=== PATIENT | male | born 1995 | race Caucasian/White ===

== ENCOUNTER 2018-06-20 04:17 | Emergency (ER) | payer SELFPAY ==
[2018-06-20 04:18] VITALS: BP 156/95; PULSE 81; RESP 18; TEMP 37.1; O2SAT 94; BMI 34.0
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
[2018-06-20] MEDS: 0.9% Normal Saline 1,000 ML 999 ML IV (05:01)
[2018-06-20 05:23] LABS: Absolute Lymphocyte Count 1.38 X10^3/ul (0.83-4.51); Absolute Neutrophil Count 5.3 X10^3/uL (2.0-7.7); Basophil# 0.01 X10^3/uL; Basophil% 0.1 % (0-1); Eosinophil# 0.12 X10^3/uL; Eosinophils% 1.6 % (0-5); Hemoglobin 14.5 g/dl (13.0-16.5); Lymphocyte # 1.38 X10^3/ul (4.0); Lymphocyte % 18.4 % (19-41); Mean Corpuscular Hgb 28.6 pg (27.0-32.0); Mean Corpuscular Volume 86.8 fL (80-94); Monocyte# 0.64 X10^3/uL; Monocyte% 8.5 % (0-10); Neutrophil # 5.34 X10^3/uL (2.7-7.7); Neutrophil % 71.3 % (47-70); Platelet Count 161 K/mm3 (150-450); RBC Distribution Width CV 13.1 % (11.6-14.6); RBC Distribution Width SD 41.3 fl (35.1-43.9); Red Blood Count 5.07 M/mm3 (4.6-6.2); White Blood Count 7.5 K/mm3 (4.4-11.0)
[2018-06-20 05:35] LABS: International Normalized Ratio 0.9; Prothrombin Time (Protime)PT. 12.4 SECONDS (11.7-14.9)
[2018-06-20 05:36] LABS: Partial Thromboplast Time 33.9 Seconds (24.1-36.2)
[2018-06-20 05:37] LABS: BUN 16 mg/dL (7-18); Creatinine, Serum 0.94 mg/dL (0.70-1.30); Glucose 109 mg/dL (74-106)
[2018-06-20 05:38] LABS: Anion Gap 11 (5-15); Calcium,Total 8.7 mg/dL (8.5-10.1); Chloride 106 mmol/L (98-107); EST Glomerular Filtration Rate 106 mL/min (>60); Est Glom Filt Rate - Afr Amer 128 mL/min (>60); Estimated Creatinine Clearance 123.27 ml/min; Potassium 3.6 mmol/L (3.5-5.1); Sodium Level 141 mmol/L (136-145)
[2018-06-20 05:53] LABS: POSITIVE COUNT NO; POSITIVE DIFFERENTIAL NO; POSITIVE MORPHOLOGY NO
[2018-06-20 06:18] VITALS: BP 140/75; PULSE 108; RESP 18; O2SAT 99
[2018-06-20 06:31] LABS: Bacteria 0 SEEN /hpf (None Seen); Mucous, Urine 0 SEEN /hpf (<or=2+); Red Blood Cells-Urine 0 SEEN /hpf (0-5); Squamous Epithelial Cells - UA 0 SEEN /hpf (0-5)
[2018-06-20 06:38] LABS: Color, Urine Yellow (Yellow); Glucose, Dipstick Normal (Normal); Ketone-Dipstick Negative (Negative); Leukocyte Esterase-Dipstick Negative /ul (Negative); Nitrite-Dipstick Negative (Negative); Occult Blood-Urine Negative /ul (Negative); Protein-Dipstick Negative (Negative); Specific Gravity, Urine 1.015 (1.002-1.030); Urine Bilirubin Dipstick Negative (Negative); Urine Clarity Clear (Clear); Urine Urobilinogen Normal (Normal); Urine pH 6.5 (5.0 - 8.0)
[2018-06-20 06:47] LABS: White Blood Cells 0-5 SEEN /hpf (0-5)
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
[2018-06-20 07:09] VITALS: BP 138/75; PULSE 84; RESP 17; O2SAT 98
== END 2018-06-20 07:10 | disposition home or self-care (01) ==
PROVIDERS: Emergency Provider Emergency Medicine
DX: S13.4XXA Sprain of ligaments of cervical spine, initial encounter (principal); S76.312A Strain of muscle, fascia and tendon of the posterior muscle group at thigh level, left thigh, initial encounter; V49.50XA Passenger injured in collision with unspecified motor vehicles in traffic accident, initial encounter; Y93.9 Activity, unspecified; Y92.9 Unspecified place or not applicable; Y99.9 Unspecified external cause status; S60.512A Abrasion of left hand, initial encounter; W22.12XA Striking against or struck by front passenger side automobile airbag, initial encounter; M25.511 Pain in right shoulder; F17.200 Nicotine dependence, unspecified, uncomplicated
CPT/HCPCS: 70450; 71045; 72125; 72170; 73000; 80048; 80320; 81001; 85025; 85610; 85730; 93005; 96360; 99285; J7030; A4216; G0480